=== PATIENT | male | born 1975 | race Caucasian/White ===

== ENCOUNTER 2016-11-13 22:30 | Emergency (ER) | payer BC ==
[~2016-11-13] VITALS: Ht 182.9 cm; Wt 83.9 kg
[~2016-11-13 22:30] MED LIST: AMOX-426 PO; CEFA1VIA2 IJ; CEPH-568 PO; CEPH500C2 PO; LISI10TA5 PO; LISI2.5T48 PO
[2016-11-13 22:40] VITALS: BP 149/106; PULSE 63; RESP 12; TEMP 98.9; O2SAT 96
--- NOTE | 2016-11-13 22:40 | NUR ---
Patient to ER bed 8 to gown for evaluation. Side rails up. Report given to RHONDA Gomez.
--- NOTE | 2016-11-13 22:45 | NUR ---
Patient AAO x4, sitting in bed, c/o bump to right elbow, denies pain, patient states he injured arm 3 weeks ago and last week after working out at the gym noticed swelling to right elbow. Patient was seen in urgent care and given pressure bandage, no relief to swelling. No acute distress noted. Vital signs stable. Will continue to monitor.
--- NOTE | 2016-11-13 23:15 | NUR ---
REGINA Woodward at bedside examining patient.
[2016-11-13 23:55] VITALS: BP 140/85; PULSE 75; RESP 16; TEMP 97.8; O2SAT 98
--- NOTE | 2016-11-13 23:55 | NUR ---
Patient given written and verbal discharge instructions and verbalizes understanding. ER MD discussed with patient the results and treatment provided. Patient in stable condition. ID arm band removed. Patient educated on pain management and to follow up with PMD. Pain Scale 0/10. Opportunity for questions provided and answered.
== END 2016-11-13 23:55 | disposition home or self-care (01) ==
LOC: SED 22:30
DX: M67.421 Ganglion, right elbow (principal); I10 Essential (primary) hypertension
CPT/HCPCS: 99281